=== PATIENT | female | born 1950 | race Caucasian/White ===

== ENCOUNTER 2020-08-15 16:39 | Observation (INO) | payer MEDICARE, BC, SELFPAY ==
--- NOTE | ~2020-08-15 | US_ITS ---
EXAMINATION: US carotid duplex BI DATE: 08/16/2020 08:24 INDICATION: Syncope TECHNIQUE: Grayscale, color Doppler, and pulsed Doppler images of the cervical carotid arteries were obtained. The degree of vessel stenosis is placed in one of the following categories: normal, <50%, 5 0-69%, >=70% but less than near-occlusion, near-occlusion, or total occlusion. Note that percent sten osis relative to normal distal artery lumen diameter is indirectly measured from velocity measurement s as described by Regulo, et al. Radiology 2003; 229:340-346. COMPARISON: 08/15/2020 CT brain FINDINGS: RIGHT: The right common carotid artery (CCA) peak systolic velocity (PSV) is 95.2 cm/s. The right internal c arotid artery (ICA) PSV is 59.2 cm/s. The right ICA end-diastolic velocity (EDV) is 9.8 cm/s. The rig ht ICA/CCA PSV ratio is 0.6. Grayscale and color Doppler images yield an estimate of less than 50% di ameter reduction from plaque in the ICA. The external carotid artery (ECA) PSV is 108.2 cm/s. There i s antegrade flow in the right vertebral artery. LEFT: The left CCA PSV is 98.4 cm/s. The left ICA PSV is 108.2 cm/s. The left ICA EDV is 13.6 cm/s. The lef t ICA/CCA PSV ratio is 1.1. Grayscale and color Doppler images yield an estimate of less than 50% jackie meter reduction from plaque in the ICA. The ECA PSV is 98.3 cm/s. There is antegrade flow in the left vertebral artery. IMPRESSION: 1. Less than 50% stenosis in the right internal carotid artery. 2. Less than 50% stenosis in the left internal carotid artery. Reviewed, dictated and finalized at [facility]. Reviewed, dictated and finalized at location [facility].
--- NOTE | ~2020-08-15 | XR_ITS ---
EXAMINATION: XR chest 2V DATE: 08/15/2020 17:52 INDICATION: Syncope TECHNIQUE: frontal and lateral views of the chest were obtained. COMPARISON: None FINDINGS: The lungs are clear with no focal airspace opacities, pulmonary edema, pleural effusion or pneumothor ax. The cardiomediastinal silhouette is normal. Multiple surgical clips at the base of the neck which given location may be related to prior thyroidectomy. Minimal scattered degenerative skeletal change s. IMPRESSION: 1. No acute cardiopulmonary disease. Reviewed, dictated and finalized at location [facility].
--- NOTE | ~2020-08-15 | CT_ITS ---
EXAMINATION: CT brain wo con DATE: 08/15/2020 17:48 INDICATION: Unresponsiveness. Confusion. TECHNIQUE: Computed tomography (CT) of the head was performed without intravenous contrast. Sagittal and coronal reconstructions were performed. The mA was adjusted according to patient size. Iterative reconstruction technique was employed. The dose-length product was 605.33 mGy-cm. COMPARISON: None FINDINGS: Old lacunar infarcts at the bilateral basal ganglia involving the heads of the caudate nuclei and adj acent anterior limbs of the internal capsules. No acute intracranial hemorrhage, acute infarction or abnormal extra axial fluid collection. There is mild scattered white matter hypoattenuation consisten t with chronic small vessel ischemic disease. Symmetric prominence of the sulci consistent with mild age-appropriate diffuse cerebral volume loss. Ventricles are normal and symmetric. No mass/mass effe ct. Changes of bilateral intraocular lens replacement. The orbits, paranasal sinuses and mastoid air cells are normal. Small amount of intracranial calcified cerebral atherosclerosis is noted at the car otid siphons. IMPRESSION: 1. No acute intracranial process. 2. Old lacunar infarcts at the bilateral basal ganglia. 3. Age-related changes including mild diffuse volume loss and mild scattered white matter hypoattenua tion consistent with chronic small vessel ischemic disease. Reviewed, dictated and finalized at location A. IMPRESSION: 1. No acute intracranial process. 2. Old lacunar infarcts at the bilateral basal ganglia. 3. Age-related changes including mild diffuse volume loss and mild scattered wh ite matter hypoattenuation consistent with chronic small vessel ischemic diseas e.
[2020-08-15 16:42] VITALS: BP 129/48; PULSE 85; RESP 17; TEMP 36.3; O2SAT 100
--- NOTE | 2020-08-15 16:42 | ECG_ITS ---
Measurements Intervals Williams Rate: 83 P: 51 CO: 147 QRS: 30 QRSD: 81 T: 32 QT: 351 QTc: 415 Interpretive Statements SINUS RHYTHM NONSPECIFIC ST & T-WAVE ABNORMALITY- ANTEROLAT/INF LEADS BASELINE ARTIFACT- I, II, III, AVR, AVL, AVF, V1-V6 BORDERLINE ECG Electronically Signed On 08-15-2020 17:17:14 CDT by Hamilton Baldwin D.O.
[2020-08-15 16:46] VITALS: PULSE 86
--- NOTE | 2020-08-15 16:49 | ED.SYNCOPE ---
HPI - Syncope General Chief Complaint: Syncope Stated Complaint: syncopal episode Time Seen by Provider: 08/15/20 16:42 Source: patient Mode of arrival: ambulatory Limitations: no limitations History of Present Illness HPI narrative: This is a 69 year old female with history of CVA with residual right side weakness, GI bleeding who presents for evaluation of a syncopal episode. Patient states she was at a baby shower when this event happened. She states she had been standing up for a few minutes to get ready to leave and she started feeling weak. Her sister states patient became unresponsive, pale and diaphoretic. They sat her down in a chair and she still remained unresponsive. Patient denies history of chest pain, palpitations, sob, nausea, vomiting or abdominal pain. Her sister states she was admitted to [facility] 2months ago for a GI bleed and anemia. She states they did not find source of bleeding at time of admission. Patient is taking iron supplementation . she reports dark stools since starting her oral supplementation, but she denies abdominal pain, nausea or vomiting. Denies history of cardiac disease or arrhythmia. Related Data Allergies Allergy/AdvReac Type Severity Reaction Status Date / Time No Known Allergies Allergy Verified 08/15/20 16:47 Review of Systems Review of Systems: All systems reviewed & are unremarkable except as noted in HPI and below Constitutional: Constitutional: Reports weakness Cardiovascular: Cardiovascular: Denies chest pain Respiratory: Respiratory: Denies cough and Denies dyspnea Gastrointestinal: Gastrointestinal: Denies abdominal pain, Denies diarrhea, Denies nausea and Denies vomiting Neurologic: Denies headache(s) and Reports focal weakness (right side residual weakness from previous stroke) [facility] Social History Social History Gender identity (if verbalized by the patient): Female Exam Const: General: no acute distress and alert Orientation/consciousness: patient oriented x3 HENMT: Other: right facial droop Eyes: Pupils: Equal, round and reactive pupils present EOM: EOMs intact bilaterally Chest: Chest palpation & inspection: normal inspection of the chest Resp: Effort & Inspection: normal respiratory effort and no retractions Auscultation: clear to auscultation bilaterally Cardio: Rate: regular rate Rhythm: regular rhythm Heart sounds: no murmurs GI: Auscultation: normal bowel sounds Other: soft nontender Skin: General skin exam: normal color Rashes: no rashes Neuro: General: patient oriented x3 and moves all extremities Other: right facial droop, mild drift to right arm from previous stroke Extrem: General: normal to inspection Psych: Mental Status: mental status grossly normal Affect: normal affect Course Reevaluation(s) Reevaluation #1: Patient is agreeable to observation in hospital for syncope. labs unremarkable so far. Date: 08/15/20 Time: 18:36 Consultations Consultation #1: I have discussed case with Leila coley who accepts patient for admission. Date: 08/15/20 Time: 18:38 Vital Signs Vital signs: Vital Signs Temperature 97.4 F L 08/15/20 16:42 Pulse Rate 85 08/15/20 16:42 Respiratory Rate 17 08/15/20 16:42 Blood Pressure 129/48 L 08/15/20 16:42 Pulse Oximetry 100 08/15/20 16:42 Temperature 97.4 F L 08/15/20 16:42 Pulse Rate 81 08/15/20 18:16 Respiratory Rate 16 08/15/20 18:16 Blood Pressure 124/74 08/15/20 18:16 Pulse Oximetry 99 08/15/20 18:16 MDM - Syncope Lab Data Attestation: I reviewed the patient's lab results. Result diagrams: 08/15/20 17:15 08/15/20 17:15 Labs: Lab Results 08/15/20 08/15/20 08/15/20 Range/Units 17:15 17:15 17:15 WBC 9.7 (4.5-10.0) K/mm3 RBC 4.83 (4.2-5.4) M/mm3 Hgb 12.4 (12.0-15.0) g/dL Hct 39.8 (37.0-47.0) % MCV 82.4 (80-100) fl MCH 25.7 L (26-34) pg MCHC 31.2 L (32
[2020-08-15 17:36] LABS: Anion Gap 7 mmol/L (8-16); Blood Urea Nitrogen 20 mg/dL (7-17); Calcium 9.6 mg/dL (8.4-10.2); Carbon Dioxide 25 mmol/L (22-30); Chloride 109 mmol/L (98-107); Estimated CRCL calculation 50 ml/min; Estimated Glomerular Filt Rate > 60; Glucose 122 mg/dL (65-105); Magnesium 2.1 mg/dL (1.6-2.3); Potassium 3.6 mmol/L (3.4-5.0); Sodium 141 mmol/L (137-145)
[2020-08-15 17:39] LABS: INR 0.9; Prothrombin Time 12.7 Seconds (11.1-14.7)
[2020-08-15 17:40] LABS: Basophils Absolute Auto 0.1 K/mm3 (0.0-0.1); Basophils Percent Auto 0.9 % (0.2-1.2); Eosinophils Absolute Auto 0.4 K/mm3 (0-0.3); Eosinophils Percent Auto 3.8 % (0-4.4); Hematocrit 39.8 % (37.0-47.0); Hemoglobin 12.4 g/dL (12.0-15.0); Immature Granulocyte Absolute 0.04 K/mm3 (0.00-0.031); Immature Granulocyte Percent A 0.4 % (0-0.5); Immature Platelet Fraction Pct 4.2 % (0.9-11.2); Lymphocytes Absolute Auto 1.59 K/mm3 (0.9-3.2); Lymphocytes Percent Auto 16.4 % (18.3-44.2); Mean Corpuscular HGB Conc 31.2 g/dl (32-36); Mean Corpuscular Hemoglobin 25.7 pg (26-34); Mean Corpuscular Volume 82.4 fl (80-100); Monocytes Absolute Auto 0.8 K/mm3 (0.1-0.6); Monocytes Percent Auto 8.2 % (2.6-8.5); Neutrophils Absolute Auto 6.8 K/mm3 (1.3-6.7); Neutrophils Percent Auto 70.3 % (45.5-73.1); Partial Thromboplastin Time 24.7 SECONDS (22.3-36.8); Platelet Count Result 325 k/mm3 (150-375); Red Blood Count 4.83 M/mm3 (4.2-5.4); White Blood Count 9.7 K/mm3 (4.5-10.0)
[2020-08-15 17:47] LABS: D Dimer 0.27 ug/mL (<0.48); Troponin I < 0.012 ng/mL (0.000-0.034)
[2020-08-15 17:48] LABS: Platelet Estimate Adequate (Adequate)
[2020-08-15 17:49] LABS: Ovalocytes 1+ (NORMAL)
[2020-08-15 17:52] LABS: Schistocytes 2+ (NORMAL); Target Cells 1+ (NORMAL)
[2020-08-15 17:53] LABS: Burr Cells 1+ (NORMAL); Stomatocytes 1+ (NORMAL)
[2020-08-15 18:16] VITALS: BP 124/74; PULSE 81; RESP 16; O2SAT 99
[2020-08-15 18:35] LABS: Add Urine Microscopic? YES; Appearance Urine Cloudy (Clear); Bacteria Urine Trace /hpf; Bilirubin Urine Negative (Negative); Color Urine Yellow (Yellow); Glucose Urine UA Negative (Negative); Ketones Urine Negative (Negative); Leukocyte Esterase Ur 1+ LEU/UL (Negative); Mucus Urine Rare /lpf; Nitrate Urine Negative (Negative); Protein Urine Negative (Negative); RBC Urine 0-2 /hpf (0-2); Squamous Epithelial Cell Urine Rare /hpf (Few); Urobilinogen Urine Negative mg/dL (<2.0)
[2020-08-15 18:36] LABS: Blood Urine Negative (Negative)
[2020-08-15 19:13] VITALS: BP 105/52; PULSE 86; RESP 14; O2SAT 99
[2020-08-15 20:25] VITALS: BP 132/59; PULSE 87; RESP 16; TEMP 36.4; O2SAT 98; BMI 14.9
--- NOTE | 2020-08-15 21:15 | PM.IMHP ---
H&P: HPI History of Present Illness Date/Time: 08/15/20 21:15 Chief Complaint: Syncopal episode. Narrative: This is a 69-year-old female with a history of CVA with residual right-sided weakness, hypertension, hyperlipidemia, iron deficiency anemia, and glaucoma who presented to the emergency department earlier today via EMS for evaluation after a syncopal episode. She was at a baby shower this afternoon and not long prior to arrival while saying her goodbyes she ?collapsed? according to those nearby and they were able to help her to the ground. It is my understanding that she was unresponsive for several minutes before coming to. Several nurses were present and I was told the patient was diaphoretic and had a thready pulse. She was alert and oriented when she awoke but she does not remember what happened just prior to her passing out. She thinks someone must have bumped into her which caused her to fall down but those nearby state that is untrue. She does not recall feeling lightheaded, dizzy, warm, or nauseated prior to the event. She also denies chest pain, pleuritic pain, palpitations, racing heart, and shortness of breath. At the time my evaluation she has no complaints. Of note the patient's cousin at bedside tells me that the family members are concerned that she does not eat or drink enough and fear that she is probably a bit dehydrated. Review of Systems Review of Systems: Narrative: Twelve systems were reviewed with pertinent positives and negatives as per HPI. No fever, chills, or sweats. She denies sinus congestion, rhinorrhea, otalgia, and odynophagia. No headache. No acute auditory visual changes. She has residual right-sided weakness from previous stroke which is unchanged. She has a history of falls due to the right-sided weakness but does not ambulate with a walker. Last fall was several months ago. No nausea, vomiting, or diarrhea. She denies dysuria, urinary hesitancy, urgency, and frequency. No history of venous thromboembolism. No melena or hematochezia. Except as documented, all other systems were reviewed and are negative. [facility] Past Medical History Medical History (Updated 08/15/20 @ 21:39 by Leila Ko PA-C) Anxiety Cerebrovascular accident Old lacunar infarcts in bilateral basal ganglia noted on brain CT dated 08/15/2020. Dyslipidemia Gastroesophageal reflux disease Glaucoma Hypertension Iron deficiency anemia Hospitalized at [facility] in [place] in early 2020 with profound anemia (hemoglobin was reportedly 5 grams). Upper and lower endoscopy were reportedly unremarkable and stool was Hemoccult negative. Osteoporosis Surgical History Surgical History (Updated 08/15/20 @ 21:33 by Leila Ko PA-C) History of hysterectomy History of tonsillectomy Status post removal of thyroid nodule Benign pathology. Family History Family History (Updated 08/15/20 @ 21:33 by Leila Ko PA-C) Mother Dementia Father Hypertension Lung disease Social History Social History (Updated 08/15/20 @ 21:44 by Leila Ko PA-C) Social History: The patient is and lives with her in [place]. Lifelong nonsmoker. No alcohol or illicit substance abuse. She designates her Jd as her surrogate decision maker and she wishes to be a full code. Meds Home Medications and Allergies Allergies Allergy/AdvReac Type Severity Reaction Status Date / Time No Known Allergies Allergy Verified 08/15/20 16:47 Vital Signs Vital Signs - 24 hr 08/15/20 16:42 08/15/20 16:46 08/15/20 18:16 Temperature 97.4 F L Pulse Rate 85 86 81 Respiratory Rate 17 16 Blood Pressure 129/48 L 124/74 Pulse Oximetry 100 99 08/15/20 19:13 Temperature Pulse Rate 86 Respiratory Rate 14 Blood Pressure 105/52 L Pulse Oximetry 99 Exam Narrative: Exam Narrative: General: Thin, frail elderly female sitting up in bed in no acute distress. Weight: 40.
[2020-08-15 23:00] VITALS: BMI 16.7
--- NOTE | 2020-08-15 23:07 | ADMGEN ---
This patient, Va Castaneda, was admitted to [facility] Surg Room 331-01. Patient/family oriented to hospital policies and general routines including ID bracelet, bed and alarms, visiting hours, pain management, procedures, bathroom and other care routines, personal items, smoking policy, room service/diet, and visiting hours. Information on how to activate the Rapid Response Team has been discussed. Patient/Family are encouraged to report perceived risks to care and to ask questions if they do not understand what they are told or what they should do.
[2020-08-16] VITALS (12 sets, daily range): BP systolic 121–160; BP diastolic 48–77; PULSE 84–109; RESP 18–20; TEMP 36.1–37.4; O2SAT 95–98
[2020-08-16] MEDS: SODIUM CHLORIDE 0.9% IV 1,000 ML 999 ML IV CONT (02:21)
[2020-08-16] MEDS: SODIUM CHLORIDE 0.9% IV 1,000 ML 100 ML IV CONT (04:47)
[2020-08-16 05:55] LABS: Hematocrit 35.5 % (37.0-47.0); Hemoglobin 11.5 g/dL (12.0-15.0); Immature Platelet Fraction Pct 4.1 % (0.9-11.2); Mean Corpuscular HGB Conc 32.4 g/dl (32-36); Mean Corpuscular Hemoglobin 25.9 pg (26-34); Platelet Count Result 280 k/mm3 (150-375); Red Blood Count 4.44 M/mm3 (4.2-5.4); White Blood Count 10.7 K/mm3 (4.5-10.0)
[2020-08-16 06:10] LABS: Alanine Aminotransferase 24 U/L (4-35); Albumin Level 3.5 g/dL (3.5-5.1); Alkaline Phosphatase 89 U/L (38-126); Anion Gap 2 mmol/L (8-16); Aspartate Amino Transferase 30 U/L (14-36); Bilirubin,Total 0.1 mg/dL (0.2-1.3); Blood Urea Nitrogen 15 mg/dL (7-17); Calcium 8.8 mg/dL (8.4-10.2); Carbon Dioxide 28 mmol/L (22-30); Chloride 112 mmol/L (98-107); Estimated CRCL calculation 56 ml/min; Estimated Glomerular Filt Rate > 60; Glucose 85 mg/dL (65-105); Magnesium 1.9 mg/dL (1.6-2.3); Potassium 3.9 mmol/L (3.4-5.0); Sodium 142 mmol/L (137-145)
--- NOTE | 2020-08-16 11:10 | PM.IMPN ---
Progress Note: A&P Assessment and Plan (1) Syncope and collapse: Code(s): R55 - Syncope and collapse Status: Acute Assessment and Plan: Patient presents today for evaluation after syncopal episode, etiology of which is not entirely clear at this time. As she was reportedly diaphoretic and with a weak pulse I am wondering if she may have had a vagal response or perhaps her blood pressure dropped. Orthostatic vital signs were not obtained in the emergency department but I will ask the nurses to do that at this time. Initiate fall precautions. She will be monitor on telemetry overnight to rule out cardiac dysrhythmia and it may be prudent to send her with an event monitor on discharge. Obtain echocardiogram and carotid Doppler ultrasounds, however she could likely be discharged home tomorrow if those tests are unable to be performed as she has an appointment with her primary care provider this coming Monday. Blood pressures are on the lower side of normal and I think I am going to hold her antihypertensives tonight. The rest of her home medications will be reviewed and resumed as appropriate. She will receive cautious IV fluid rehydration as she appears a bit dry on exam. Her hemoglobin and hematocrit are also within normal limits and she is likely hemoconcentrated given her recent diagnosis of anemia. 08/16/20 11:10 patient is 69-year-old female with history of CVA with residual right-sided weakness hypertension hyperlipidemia and added deficiency anemia while at a baby shower patient collapsed there was some people around her and patient was easily lower to the floor, patient was diaphoretic and pulse was threading there was a concern the patient may unresponsive for few min, so far workup is negative, and patient denies any complaint chest pain shortness of breath palpitation prior to fall, there is a concerned the patient is malnourished is her BMI 16 and may not have been eating well. CT scan of the head did not show any acute injury to further evaluate patient had a carotid ultrasound essentially normal no stenosis, pending cardiac echo to further evaluate, will have a PT OT evaluate the patient, will have dietitian consult the patient for low BMI and further recommendation to follow (2) Hypertension: Code(s): I10 - Essential (primary) hypertension Status: Acute Assessment and Plan: Patient blood pressure is soft will hold her home medication monitor and resume when necessary (3) Dyslipidemia: Code(s): E78.5 - Hyperlipidemia, unspecified Status: Acute Assessment and Plan: Will continue home regimen (4) Iron deficiency anemia: Code(s): D50.9 - Iron deficiency anemia, unspecified Status: Inactive Assessment and Plan: Will do the iron profile and vitamin B12 folate levels Subjective Date/time seen: Patient presents today for evaluation after syncopal episode, etiology of which is not entirely clear at this time. As she was reportedly diaphoretic and with a weak pulse I am wondering if she may have had a vagal response or perhaps her blood pressure dropped. Orthostatic vital signs were not obtained in the emergency department but I will ask the nurses to do that at this time. Initiate fall precautions. She will be monitor on telemetry overnight to rule out cardiac dysrhythmia and it may be prudent to send her with an event monitor on discharge. Obtain echocardiogram and carotid Doppler ultrasounds, however she could likely be discharged home tomorrow if those tests are unable to be performed as she has an appointment with her primary care provider this coming Monday. Blood pressures are on the lower side of normal and I think I am going to hold her antihypertensives tonight. The rest of her home medications will be reviewed and resumed as appropriate. She will receive cautious IV fluid rehydration as she appears a bit dry on exam. Her hemoglobin and hematocrit are also w
[2020-08-16] MEDS: FLUoxetine HCL 20 MG CAPSULE PO (17:45)
[2020-08-16] MEDS: LATANOPROST 0.005% OP SOLN 2.5 ML BTL 1 DROP EACH EYE (17:45)
[2020-08-16] MEDS: BRINZOLAMIDE 1% OPHTH SUSP 10 ML 1 DROP EACH EYE (20:53)
[2020-08-16] MEDS: ATORVASTATIN 40 MG TABLET PO (20:53)
[2020-08-16] MEDS: PRIMIDONE 50 MG TABLET PO (20:53)
[2020-08-16] MEDS: clonazePAM (*CRX) 0.5 MG TABLET PO (20:53)
[2020-08-17 06:00] VITALS: BP 155/67; PULSE 63; RESP 18; TEMP 36.5; O2SAT 100
--- NOTE | 2020-08-17 06:00 | ECHO_ITS ---
Patient Info Name: Va Castaneda Age: 69 years : 1950 Gender: Female Ht: 66 in Wt: 103 lbs BSA: 1.46 m2 HR: 80 bpm BP: 155 / 67 mmHg Heart Rhythm: Sinus Rhythm Technical Quality: Good Exam Date: 08/17/2020 8:53 AM Exam Location: [facility] Exam Room: 331 Patient Status: Inpatient Admit Date: 08/15/2020 Staff Ordering Physician: Janina Hess MD Lead Recoverer: Marlee Viera RDCS Attending Provider: Monalisa Farooq MD Referring Physician: Jimena VILLARREAL; Exam Type: CA echo doppler color flow Study Info Indications - syncope Complete two-dimensional, color flow and Doppler transthoracic echocardiogram is performed. Summary 1. Complete two-dimensional, color flow and Doppler transthoracic echocardiogram is performed. 2. Left ventricular chamber dimension is normal. 3. Left ventricular systolic function is hyperdynamic, estimated at >70%. 4. No significant valvular disease. 5. Circumferential pericardial effusion which in some views looks moderate in other views small. No stigmata of tamponade. Left Ventricle Left ventricular chamber dimension is normal. Left ventricular systolic function is hyperdynamic, estimated at >70%. The left ventricular diastolic function is grade I diastolic dysfunction. Right Ventricle Right ventricular chamber dimension is normal. Left Atria Left atrial chamber dimension is normal. Right Atria Right atrial chamber dimension is normal. Aortic Valve The aortic valve is trileaflet. There is mild aortic valve sclerosis. Pulmonic Valve The pulmonic valve is not well visualized. Mitral Valve The mitral valve has normal leaflets. Tricuspid Valve The tricuspid valve leaflets are normal. Pericardium/Pleural The pericardium appears thickened pericardium. There is moderate circumferential pericardial effusion. Aorta The aortic root size at the sinus of Valsalva is normal. Left Ventricular Outflow Tract Name Value Normal LVOT 2D LVOT Diameter 2.0 cm LVOT Doppler LVOT Peak Gradient 11 mmHg LVOT Mean Gradient 6 mmHg LVOT VTI 32 cm LVOT VTI/AV VTI Ratio 0.9 LVOT Stroke Volume 100 ml LVOT CO 20.5 l/min LVOT CI 14.1 l/min/m2 Pulmonic Valve Name Value Normal PV Doppler PV Peak Gradient 3 mmHg Mitral Valve Name Value Normal MV Doppler MV Decel Todd 256 cm/s2 MV PHT
[2020-08-17 06:36] LABS: Hematocrit 35.7 % (37.0-47.0); Hemoglobin 11.4 g/dL (12.0-15.0); Immature Platelet Fraction Pct 4.4 % (0.9-11.2); Mean Corpuscular HGB Conc 31.9 g/dl (32-36); Mean Corpuscular Hemoglobin 25.9 pg (26-34); Platelet Count Result 271 k/mm3 (150-375); Red Blood Count 4.41 M/mm3 (4.2-5.4); White Blood Count 8.5 K/mm3 (4.5-10.0)
[2020-08-17 06:45] LABS: Anion Gap 3 mmol/L (8-16); Blood Urea Nitrogen 18 mg/dL (7-17); Calcium 9.5 mg/dL (8.4-10.2); Carbon Dioxide 29 mmol/L (22-30); Chloride 110 mmol/L (98-107); Estimated CRCL calculation 56 ml/min; Estimated Glomerular Filt Rate > 60; Glucose 93 mg/dL (65-105); Potassium 3.6 mmol/L (3.4-5.0); Sodium 142 mmol/L (137-145)
[2020-08-17 06:58] LABS: Iron 25 ug/dL (37-170)
[2020-08-17 07:09] LABS: Percent Iron Saturation 9 % (20-50)
[2020-08-17 07:56] LABS: Folic Acid > 20.0 ng/mL (2.76->20)
[2020-08-17] MEDS: MULTIVITAMINS /C LUTEIN (CENTRUM SILVER) TABLET *BKC 1 TAB PO (10:17)
[2020-08-17] MEDS: CHOLECALCIFEROL 1,000 UNITS TABLET 1000 UNITS PO (10:18)
[2020-08-17] MEDS: PANTOPRAZOLE 40 MG TABLET PO (10:18)
[2020-08-17] MEDS: POLYSACCHARIDE IRON COMPLEX 150 MG CAPSULE PO (10:18)
[2020-08-17] MEDS: ASPIRIN 81 MG CHEWABLE TABLET PO (10:18)
[2020-08-17] MEDS: SENNA/DOCUSATE SODIUM TABLET 1 TAB PO (10:18)
[2020-08-17] MEDS: FLUoxetine HCL 20 MG CAPSULE PO (10:18)
[2020-08-17] MEDS: BRINZOLAMIDE 1% OPHTH SUSP 10 ML 1 DROP EACH EYE (10:19)
--- NOTE | 2020-08-17 11:27 | PM.DS ---
DS: Admitting Diagnosis Admitting Diagnosis Admitting Diagnosis: Chief Complaint: Syncopal episode. DS: Discharge Diagnosis Discharge Diagnosis (1) Syncope and collapse: Code(s): R55 - Syncope and collapse Status: Acute Assessment and Plan: Patient presents today for evaluation after syncopal episode, etiology of which is not entirely clear at this time. As she was reportedly diaphoretic and with a weak pulse I am wondering if she may have had a vagal response or perhaps her blood pressure dropped. Orthostatic vital signs were not obtained in the emergency department but I will ask the nurses to do that at this time. Initiate fall precautions. She will be monitor on telemetry overnight to rule out cardiac dysrhythmia and it may be prudent to send her with an event monitor on discharge. Obtain echocardiogram and carotid Doppler ultrasounds, however she could likely be discharged home tomorrow if those tests are unable to be performed as she has an appointment with her primary care provider this coming Monday. Blood pressures are on the lower side of normal and I think I am going to hold her antihypertensives tonight. The rest of her home medications will be reviewed and resumed as appropriate. She will receive cautious IV fluid rehydration as she appears a bit dry on exam. Her hemoglobin and hematocrit are also within normal limits and she is likely hemoconcentrated given her recent diagnosis of anemia. 08/16/20 11:10 patient is 69-year-old female with history of CVA with residual right-sided weakness hypertension hyperlipidemia and added deficiency anemia while at a baby shower patient collapsed there was some people around her and patient was easily lower to the floor, patient was diaphoretic and pulse was threading there was a concern the patient may unresponsive for few min, so far workup is negative, and patient denies any complaint chest pain shortness of breath palpitation prior to fall, there is a concerned the patient is malnourished is her BMI 16 and may not have been eating well. CT scan of the head did not show any acute injury to further evaluate patient had a carotid ultrasound essentially normal no stenosis, pending cardiac echo to further evaluate, will have a PT OT evaluate the patient, will have dietitian consult the patient for low BMI and further recommendation to follow (2) Hypertension: Code(s): I10 - Essential (primary) hypertension Status: Acute Assessment and Plan: Patient blood pressure is soft will hold her home medication monitor and resume when necessary (3) Dyslipidemia: Code(s): E78.5 - Hyperlipidemia, unspecified Status: Acute Assessment and Plan: Will continue home regimen (4) Iron deficiency anemia: Code(s): D50.9 - Iron deficiency anemia, unspecified Status: Inactive Assessment and Plan: Will do the iron profile and vitamin B12 folate levels DS: Summary Hospital Course Reason for hospitalization: Chief Complaint: Syncopal episode. Narrative: This is a 69-year-old female with a history of CVA with residual right-sided weakness, hypertension, hyperlipidemia, iron deficiency anemia, and glaucoma who presented to the emergency department earlier today via EMS for evaluation after a syncopal episode. She was at a baby shower this afternoon and not long prior to arrival while saying her goodbyes she ?collapsed? according to those nearby and they were able to help her to the ground. It is my understanding that she was unresponsive for several minutes before coming to. Several nurses were present and I was told the patient was diaphoretic and had a thready pulse. She was alert and oriented when she awoke but she does not remember what happened just prior to her passing out. She thinks someone must have bumped into her which caused her to fall down but those nearby state that is untrue. She does not recall feeling lightheaded, dizzy, warm, or n
[2020-08-17 11:37] VITALS: BMI 16.7
== END 2020-08-17 13:35 | disposition home or self-care (01) ==
LOC: ANHED 19:27 → ANH3MEDSUR 08-16 14:25
PROVIDERS: Family Medicine; Physician Assistant; Admitting Provider Internal Medicine; Emergency Provider General Practice; PCP Family Medicine; Visit Provider Family Medicine
DX: R55 Syncope and collapse (principal); I69.351 Hemiplegia and hemiparesis following cerebral infarction affecting right dominant side; I10 Essential (primary) hypertension; E78.5 Hyperlipidemia, unspecified; D50.9 Iron deficiency anemia, unspecified
CPT/HCPCS: 36415; 70450; 71046; 80048; 80053; 81001; 82607; 82728; 82746; 83540; 83550; 83735; 84443; 84484; 85025; 85027; 85055; 85380; 85610; 85730; 87077; 87086; 87088; 87186; 93005; 93306; 93880; 97161; 97165; 99285; A9270; G0378; J7030